=== PATIENT | male | born 1930 | race Caucasian/White ===

== ENCOUNTER → 2016-04-02 | Outpatient (CLI) | payer MEDICARE, BC, OTHER | LOC: RAD 14:09 | PROVIDERS: ATTEND Internal Medicine | DX: R51 Headache (principal) | CPT/HCPCS: 70450 ==

== ENCOUNTER 2017-06-14 13:35 | Emergency (ER) | payer MEDICARE, BC, OTHER ==
[2017-06-14 14:32] LABS: ABSOLUTE EOSINOPHILS # (AUTO) 1.3 10^3/uL (0.0-0.6); ABSOLUTE LYMPHOCYTES (AUTO) 2.7 10^3/uL (0.5-4.7); ABSOLUTE MONOCYTES (AUTO) 0.6 10^3/uL (0.1-1.4); ABSOLUTE NEUT (AUTO) 2.9 10^3/uL (1.7-8.2); BASOPHILS % (AUTO) 0.5 % (0-2); EOSINOPHILS % (AUTO) 17.3 % (0-6); HEMATOCRIT 43.6 % (37.9-51.0); HEMOGLOBIN 14.9 g/dL (13.5-17.0); LYMPHOCYTES % (AUTO) 35.6 % (13-45); MEAN CORPUSCULAR HGB CONC 34.1 g/dL (32.0-36.0); MEAN CORPUSCULAR VOLUME 91 fl (80-97); MONOCYTES % (AUTO) 7.7 % (3-13); PLATELET COUNT 256 10^3/uL (150-450); RED CELL DISTRIBUTION WIDTH 14.7 % (11.5-14.0); SEGMENTED NEUTROPHILS % (AUTO) 38.9 % (42-78); TOTAL CELLS COUNTED % (AUTO) 100 %; WHITE BLOOD COUNT 7.6 10^3/uL (4.0-10.5)
--- NOTE | 2017-06-14 14:36 | RADIOLOGY REPORT (SQ) ---
EXAM DESCRIPTION: CHEST SINGLE VIEW COMPLETED DATE/TIME: 06/14/2017 2:08 pm REASON FOR STUDY: sob COMPARISON: None. EXAM PARAMETERS: NUMBER OF VIEWS: One view. TECHNIQUE: Single frontal radiographic view of the chest acquired. RADIATION DOSE: NA LIMITATIONS: None. FINDINGS: LUNGS AND PLEURA: No opacities, masses or pneumothorax. No pleural effusion. MEDIASTINUM AND HILAR STRUCTURES: No masses. Contour normal. HEART AND VASCULAR STRUCTURES: Heart normal in size. Normal vasculature. BONES: No acute findings. HARDWARE: None in the chest. OTHER: No other significant finding. IMPRESSION: NO ACUTE RADIOGRAPHIC FINDING IN THE CHEST. TECHNICAL DOCUMENTATION: JOB ID: [id number] [employer]- All Rights Reserved Reading location - IP/workstation name: [email or web address]
[2017-06-14] MEDS ORDERED: NORMAL SALINE 1000 ML 1,000 ML IV ONE (14:41)
[2017-06-14] MEDS ORDERED: IPRATROPIUM/ALBUTEROL 0.5-2.5 MG/3 ML AMPUL NEB ONE (14:41)
--- NOTE | 2017-06-14 14:42 | ER Document Report ---
ED Respiratory Problem - General Chief Complaint: Shortness Of Breath Stated Complaint: SHORTNESS OF BREATH Time Seen by Provider: 06/14/17 14:40 Notes: The patient is a 87-year-old male who presents with 2 days of shortness of breath and wheezing. No history of COPD or smoking. Patient received 125 mg IV Solumedrol and a Duoneb by EMS prior to arrival with improvement of his wheezing. He denies chest pain, leg swelling, nausea, vomiting, fevers, hemoptysis, back pain or abdominal pain. TRAVEL OUTSIDE OF THE [place] IN LAST 30 DAYS: No - Related Data Allergies/Adverse Reactions: No Known Allergies Allergy (Unverified 06/14/17 13:51) Past Medical History - General Information source: Patient - Social History Smoking Status: Never Smoker Family History: Reviewed & Not Pertinent Patient has suicidal ideation: No Patient has homicidal ideation: No Endocrine Medical History: Reports: Hx Diabetes Mellitus Type 2 Renal/ Medical History: Denies: Hx Peritoneal Dialysis Review of Systems - Review of Systems Notes: REVIEW OF SYSTEMS: CONSTITUTIONAL: -fevers, -chills EENT: -eye pain, -difficulty swallowing, -nasal congestion CARDIOVASCULAR: -chest pain, -syncope. RESPIRATORY: +cough, +SOB GASTROINTESTINAL: -abdominal pain, -nausea, -vomiting, -diarrhea GENITOURINARY: -dysuria, -hematuria MUSCULOSKELETAL: -back pain, -neck pain SKIN: -rash or skin lesions. HEMATOLOGIC: -easy bruising or bleeding. LYMPHATIC: -swollen, enlarged glands. NEUROLOGICAL: -altered mental status or loss of consciousness, -headache, - neurologic symptoms PSYCHIATRIC: -anxiety, -depression. ALL OTHER SYSTEMS REVIEWED AND NEGATIVE. Physical Exam - Vital signs Vitals: Temp Resp BP Pulse Ox 97.5 F 24 H 145/93 H 95 06/14/17 14:15 06/14/17 14:15 06/14/17 14:15 06/14/17 14:15 - Notes Notes: PHYSICAL EXAMINATION: GENERAL: Well-appearing, well-nourished and in no acute distress. HEAD: Atraumatic, normocephalic. EYES: Pupils equal round and reactive to light, extraocular movements intact, sclera anicteric, conjunctiva are normal. ENT: nares patent, oropharynx clear without exudates. Moist mucous membranes. NECK: Normal range of motion, supple without lymphadenopathy LUNGS: No respiratory distress. Mild and expiratory wheezes. HEART: Regular rhythm without murmurs, mild tachycardia. ABDOMEN: Soft, nontender, normoactive bowel sounds. No guarding, no rebound. No masses appreciated. EXTREMITIES: Normal range of motion, no pitting or edema. No cyanosis. NEUROLOGICAL: Cranial nerves grossly intact. Normal sensory and motor exams. PSYCH: Normal mood, normal affect. SKIN: Warm, Dry, normal turgor, no rashes or lesions noted. Course - Re-evaluation Re-evalutation: Patient with wheezing and cough that is improved with Solu-Medrol and DuoNebs. Chest x-ray does not show any infiltrates and patient does not have a fever or leukocytosis. CTA performed due to the mild tachycardia and shortness of breath without a history of COPD. D-dimer is positive, but CTA does not show any evidence of a PE. Rest of blood work is unremarkable. Will send home patient with 4 more days of steroids, albuterol and follow-up with the primary care doctor. Given very strict return precautions and she understands. - Vital Signs Vital signs: Temp Pulse Resp BP Pulse Ox 97.5 F 18 153/93 H 96 06/14/17 14:15 06/14/17 16:01 06/14/17 16:01 06/14/17 16:01 - Laboratory Result Diagrams: 06/14/17 14:17 06/14/17 14:17 Laboratory results interpreted by me: 06/14/17 06/14/17 06/14/17 14:17 14:17 14:17 RDW 14.7 H Seg Neutrophils % 38.9 L Eosinophils % 17.3 H Absolute Eosinophils 1.3 H D-Dimer 2.91 H Glucose 189 H AST 12 L Creatine Kinase 33 L - Diagnostic Test Radiology reviewed: Image reviewed, Reports reviewed Radiology results interpreted by me: CXR: NAD CTA Chest: No PE. - EKG Interpretation by Me EKG shows normal: Sinus rhythm, [place], Intervals, QRS Complexes, ST-T Waves Rate: Tachycardia When compared to previous EKG there are: Previous EKG unavailable Discharge - Discharge Clinical Impression: Bronchitis Condition: Stable Disposition: HOME, SELF-CARE Additional Instructions: BRONCHITIS WITH BRONCHOSPASM (WHEEZING): You have bronchitis with bronchospasm (wheezing). Sometimes people develop wheezing with a chest cold. This occurs either because of an underlying tendency toward asthma or because the virus itself irritates the bronchial tubes. This irritation causes cough, shortness of breath, and wheezing. Emergency treatment of bronchospasm may include adrenaline shots or bronchodilator aerosol. You may feel lightheaded and have a rapid pulse for an hour or two. Rest and get plenty of fluids. At home, we'll treat you with a bronchodilator inhaler. Corticosteroids may be required for some patients. Until you recover, avoid chemical fumes, dusts, pollens, and exercising in very cold or dry air. If you smoke, stop now! Most cases of bronchitis get better without antibiotics. We prescribe antibiotics when we believe bacteria are damaging your airways, or if there's high risk the bronchitis will worsen into pneumonia. Increase your fluid intake. A cool mist humidifier may make your lungs more comfortable. An expectorant (cough medicine that loosens phlegm) can help. Repeated episodes of bronchitis and bronchospasm may result in lung damage -- for example, chronic bronchitis, recurrent pneumonias, or emphysema. If you develop a fever, increased wheezing, chest pain, or severe shortness of breath, you should contact the doctor immediately. INHALED BRONCHODILATORS: You have received a treatment of and/or prescription for an inhaled bronchodilator -- a medication which stimulates the airways in the lung to dilate. This improves the flow of air in asthma, bronchitis, and emphysema. These medicines have some similarity to adrenaline, and can cause similar side effects: shakiness, racing heart, and a sense of nervousness. These side effects decrease with time. Contact your doctor if these side effects are severe. Do not over-use the medicine. Too-frequent use of the inhaler may make it ineffective. Call your doctor if the inhaler is not controlling your symptoms at the prescribed doses. STEROID MEDICATION: You have been given an injection of or oral medicine of the cortisone/ steroid class. This medication is used to control inflammation or allergy. Ezequiel t is usually only given for a short period of time, until the acute process subsides. There are usually no side effects from short-term use of cortisone-like medications. Some persons feel an increased sense of well-being and are not sleepy at bedtime. Long-term use of cortisone medications is best avoided, unless required for a severe condition. If your condition does not remit, or relapses after the course of corticosteroid medication, you should consult your physician. USE OF ACETAMINOPHEN (Tylenol): Acetaminophen may be taken for pain relief or fever control. It's much safer than aspirin, offering a wider range of "safe" dosages. It is safe during . Some brand names are Tylenol, Panadol, Datril, Anacin 3, Tempra, and Liquiprin. Acetaminophen can be repeated every four hours. The following are maximum recommended dosages: >89 pounds or adults 650 mg to 900 mg Acetaminophen can be repeated every four hours. Maximum dose not to exceed 4000 mg a day. SMOKING: If you smoke, you should stop smoking. The tar and chemicals in cigarette smoke are harmful. Smoking has been shown to cause: emphysema chronic bronchitis lung cancer mouth and throat cancer stomach and pancreas cancer premature aging defects In addition, smoking increases ear and lung infections in children of smokers. FOLLOW-UP CARE: If you have been referred to a physician for follow-up care, call the physician s office for an appointment as you were instructed or within the next two days. If you experience worsening or a significant change in your symptoms, notify the physician immediately or return to the Emergency Department at any time for re-evaluation. Prescriptions: Albuterol Sulfate [Proair HFA Inhalation Aerosol 8.5 gm MDI] 2 puff IH Q4H PRN # 1 mdi PRN Reason: Prednisone [Deltasone 20 mg Tablet] 3 tab PO DAILY 4 Days tablet Forms: Elevated Blood Pressure Referrals: WESLEY DURBIN MD [ACTIVE STAFF] - Follow up as needed
[2017-06-14 14:51] LABS: ALANINE AMINOTRANSFERASE 22 U/L (21-72); ALBUMIN 3.9 g/dL (3.5-5.0); ALKALINE PHOSPHATASE 98 U/L (38-126); ANION GAP 13 (5-19); ASPARTATE AMINO TRANSFERASE 12 U/L (17-59); BILIRUBIN,DIRECT 0.3 mg/dL (0.0-0.4); BILIRUBIN,TOTAL 0.5 mg/dL (0.2-1.3); BLOOD UREA NITROGEN 20 mg/dL (7-20); CALCIUM 9.5 mg/dL (8.4-10.2); CARBON DIOXIDE 27 mmol/L (22-30); CHLORIDE 101 mmol/L (98-107); CREATINE KINASE 33 U/L (55-170); GLUCOSE 189 mg/dL (75-110); POTASSIUM 4.4 mmol/L (3.6-5.0); SODIUM 140.9 mmol/L (137-145); TOTAL PROTEIN 7.4 g/dL (6.3-8.2)
[2017-06-14 15:02] LABS: CREATINE KINASE MB 0.72 ng/mL (<4.55); TROPONIN I 0.012 ng/mL
--- NOTE | 2017-06-14 17:10 | RADIOLOGY REPORT (SQ) ---
EXAM DESCRIPTION: CTA CHEST COMPLETED DATE/TIME: 06/14/2017 4:56 pm REASON FOR STUDY: tachycardia, SOB, elevated d-dimer COMPARISON: None. TECHNIQUE: CT scan of the chest performed using helical scanning technique with dynamic intravenous contrast injection. Images reviewed with lung, soft tissue and bone windows. Reconstructed coronal and sagittal MPR images reviewed. Additional 3 dimensional post-processing performed to develop Maximal Intensity Projection images (TN P). All images stored on PACS. All CT scanners at this facility use dose modulation, iterative reconstruction, and/or weight based d osing when appropriate to reduce radiation dose to as low as reasonably achievable (ALARA). [facility]: Dose Right [facility]: CareDose [facility]: Dose Right [facility]: Teradose 4D [facility]: CGTrader CONTRAST TYPE AND DOSE: contrast/concentration: Isovue 370.00 mg/ml; Total Contrast Delivered: 68.0 ml; Total Saline Delivered: 81.0 ml Contrast bolus optimized for the pulmonary arteries. Not diagnostic for the aorta. RENAL FUNCTION: BUN 20 creatinine 0.8. RADIATION DOSE: CT Rad equipment meets quality standard of care and radiation dose reduction techniq ues were employed. CTDIvol: 15.7 - 39.7 mGy. DLP: 607 mGy-cm. . LIMITATIONS: None. FINDINGS: LUNGS AND PLEURA: Small left pleural effusion with mild subsegmental atelectasis in the le ft lower lobe. AORTA AND GREAT VESSELS: No aneurysm. Contrast bolus not optimized for the aorta. HEART: No pericardial effusion. Moderate to marked coronary artery calcifications. PULMONARY ARTERIES: No emboli visualized in the main pulmonary arteries or the segmental branches. HILAR AND MEDIASTINAL STRUCTURES: No identified masses or abnormal nodes. HARDWARE: None in the chest. UPPER ABDOMEN: No significant findings. Limited exam. THYROID AND OTHER SOFT TISSUES: No masses. No adenopathy. BONES: No acute or significant finding. 3D MIPS: Confirm above findings. OTHER: No other significant finding. IMPRESSION: 1. There is no evidence of pulmonary emboli. 2. There is a small left pleural effusion and mild subsegmental atelectasis in the left lower lobe. COMMENT: Quality ID # [id number]: Final reports with documentation of one or more dose reduction techniques (e.g., Automated exposure control, adjustment of the mA and/or kV according to patient size, use of iterative reconstruction technique) TECHNICAL DOCUMENTATION: JOB ID: [id number] [employer]- All Rights Reserved Reading location - IP/workstation name: [email or web address]
[2017-06-14 17:34] VITALS: BP 133/81
--- NOTE | 2017-06-14 19:42 | EKG REPORT ---
SEVERITY:- ABNORMAL ECG - SINUS TACHYCARDIA ATRIAL PREMATURE COMPLEX LEFT ANTERIOR FASCICULAR BLOCK PROBABLE ANTEROSEPTAL INFARCT, OLD : Confirmed by: Nicho Hernandez MD 14-Jun-2017 19:42:07
== END 2017-06-14 17:41 | disposition home or self-care (01) ==
LOC: ER 13:35
DX: J40 Bronchitis, not specified as acute or chronic (principal); R06.02 Shortness of breath; R06.2 Wheezing; E11.9 Type 2 diabetes mellitus without complications; R05 Cough; R00.0 Tachycardia, unspecified; R79.1 Abnormal coagulation profile
CPT/HCPCS: 93005; 94640; 99285; 96360; 36415; 82553; 82550; 85025; 80053; 84484; 85379; 83880; 71045; 71275; 93010; J7030; A9270; J7620

== ENCOUNTER 2017-06-28 16:27 | Observation (INO) | payer MEDICARE, BC, OTHER ==
[2017-06-28 17:47] LABS: ABSOLUTE EOSINOPHILS # (AUTO) 0.7 10^3/uL (0.0-0.6); ABSOLUTE LYMPHOCYTES (AUTO) 1.4 10^3/uL (0.5-4.7); ABSOLUTE MONOCYTES (AUTO) 0.7 10^3/uL (0.1-1.4); ABSOLUTE NEUT (AUTO) 5.2 10^3/uL (1.7-8.2); BASOPHILS % (AUTO) 0.3 % (0-2); EOSINOPHILS % (AUTO) 8.5 % (0-6); HEMATOCRIT 39.6 % (37.9-51.0); HEMOGLOBIN 13.4 g/dL (13.5-17.0); LYMPHOCYTES % (AUTO) 17.3 % (13-45); MEAN CORPUSCULAR HEMOGLOBIN 30.5 pg (27.0-33.4); MEAN CORPUSCULAR HGB CONC 33.7 g/dL (32.0-36.0); MEAN CORPUSCULAR VOLUME 91 fl (80-97); MONOCYTES % (AUTO) 9.1 % (3-13); PLATELET COUNT 212 10^3/uL (150-450); RED BLOOD COUNT 4.38 10^6/uL (4.35-5.55); RED CELL DISTRIBUTION WIDTH 14.5 % (11.5-14.0); SEGMENTED NEUTROPHILS % (AUTO) 64.8 % (42-78); TOTAL CELLS COUNTED % (AUTO) 100 %
[2017-06-28 17:54] LABS: ALANINE AMINOTRANSFERASE 28 U/L (21-72); ALBUMIN 3.7 g/dL (3.5-5.0); ALKALINE PHOSPHATASE 87 U/L (38-126); ANION GAP 9 (5-19); ASPARTATE AMINO TRANSFERASE 13 U/L (17-59); BILIRUBIN,DIRECT 0.3 mg/dL (0.0-0.4); BILIRUBIN,TOTAL 0.3 mg/dL (0.2-1.3); BLOOD UREA NITROGEN 20 mg/dL (7-20); CALCIUM 9.5 mg/dL (8.4-10.2); CARBON DIOXIDE 30 mmol/L (22-30); CHLORIDE 101 mmol/L (98-107); CREATINE KINASE 23 U/L (55-170); GLUCOSE 256 mg/dL (75-110); POTASSIUM 4.6 mmol/L (3.6-5.0); SODIUM 139.5 mmol/L (137-145); TOTAL PROTEIN 6.8 g/dL (6.3-8.2)
[2017-06-28 18:05] LABS: CREATINE KINASE MB 0.57 ng/mL (<4.55); TROPONIN I 0.012 ng/mL
[2017-06-28] MEDS ORDERED: NORMAL SALINE 1000 ML 1,000 ML IV ONE (18:17)
--- NOTE | 2017-06-28 18:39 | ER Document Report ---
ED General - General Chief Complaint: Weakness Stated Complaint: FAILURE TO THRIVE Time Seen by Provider: 06/28/17 17:45 Mode of Arrival: Ambulatory Information source: Patient, Relative Notes: 87-year-old male with a history of dementia, diabetes presents via EMS after his primary care physician's office advised him to come to the emergency department. Per the who provides the majority of the history patient was seen by his PCP Dr. Burr last week. She was called today and told that the patient had an elevated hemoglobin A1c and glucose and evidence of dehydration. states that the patient has been declining steadily with worsening weakness, weight loss and refusal to eat. Patient has no physical complaints. states that he is alert and oriented 1 at baseline. He is non-ambulatory which also has been ongoing. She denies any falls, recent illnesses. cares for the patient independently and admits to struggling recently with his decline. TRAVEL OUTSIDE OF THE [place] IN LAST 30 DAYS: No - HPI Onset: Other Onset/Duration: Gradual Quality of pain: No pain Associated symptoms: None Exacerbated by: Denies Relieved by: Denies Similar symptoms previously: Yes Recently seen / treated by doctor: Yes - Related Data Allergies/Adverse Reactions: No Known Allergies Allergy (Unverified 06/14/17 13:51) Past Medical History - General Information source: Relative Cannot obtain history due to: Dementia - Social History Smoking Status: Never Smoker Chew tobacco use (# tins/day): No Frequency of alcohol use: None Drug Abuse: None Lives with: Spouse/Significant other Family History: Reviewed & Not Pertinent Patient has suicidal ideation: No Patient has homicidal ideation: No Endocrine Medical History: Reports: Hx Diabetes Mellitus Type 2 Renal/ Medical History: Denies: Hx Peritoneal Dialysis Review of Systems - Review of Systems -: Yes ROS unobtainable due to patient's medical condition Physical Exam - Vital signs Vitals: Temp Pulse Resp BP Pulse Ox 97.6 F 93 20 124/80 96 06/28/17 16:35 06/28/17 16:35 06/28/17 16:35 06/28/17 16:35 06/28/17 16:35 Interpretation: Normal. No: Tachycardic, Hypoxic, Febrile - Notes Notes: PHYSICAL EXAMINATION: GENERAL: Cachectic, unkempt. HEAD: Atraumatic, normocephalic. EYES: Pupils equal round and reactive to light, extraocular movements intact, sclera anicteric, conjunctiva are normal. ENT: Nares patent, oropharynx clear without exudates. Dry mucous membranes. NECK: Normal range of motion, supple without lymphadenopathy LUNGS: Breath sounds clear to auscultation bilaterally and equal. No wheezes rales or rhonchi. HEART: Regular rate and rhythm without murmurs ABDOMEN: Soft, nontender, nondistended abdomen. No guarding, no rebound. No masses appreciated. Musculoskeletal: Normal range of motion, no pitting or edema. No cyanosis. NEUROLOGICAL: Cranial nerves grossly intact. Normal speech, Normal sensory, motor exams PSYCH: Normal mood, normal affect. SKIN: Warm, Dry, normal turgor, no rashes or lesions noted. Course - Re-evaluation Re-evalutation: 06/28/17 23:09 Laboratory 06/28/17 06/28/17 06/28/17 16:30 16:30 16:30 WBC 8.0 RBC 4.38 Hgb 13.4 L Hct 39.6 MCV 91 MCH 30.5 MCHC 33.7 RDW 14.5 H Plt Count 212 Seg Neutrophils % 64.8 Lymphocytes % 17.3 Monocytes % 9.1 Eosinophils % 8.5 H Basophils % 0.3 Absolute Neutrophils 5.2 Absolute Lymphocytes 1.4 Absolute Monocytes 0.7 Absolute Eosinophils 0.7 H Absolute Basophils 0.0 Sodium 139.5 Potassium 4.6 Chloride 101 Carbon Dioxide 30 Anion Gap 9 BUN 20 Creatinine 0.87 Est GFR ( Amer) > 60 Est GFR (Non-Af Amer) > 60 Glucose 256 H POC Glucose Hemoglobin A1c % Calcium 9.5 Magnesium Total Bilirubin 0.3 Direct Bilirubin 0.3 Neonat Total Bilirubin Not Reportable Neonat Direct Bilirubin Not Reportable Neonat Indirect Bili Not Reportable AST 13 L ALT 28 Alkaline Phosphatase 87 Creatine Kinase 23 L CK-MB (CK-2) 0.57 Troponin I 0.012 Total Protein 6.8 Albumin 3.7 Urine Color Urine Appearance Urine pH Ur Specific [place] Urine Protein Urine Glucose (UA) Urine Ketones Urine Blood Urine Nitrite Urine Bilirubin Urine Urobilinogen Ur Leukocyte Esterase Urine WBC (Auto) Urine RBC (Auto) Squamous Epi Cells Auto Urine Mucus (Auto) Urine Ascorbic Acid 05/07/18 05/07/18 05/07/18 16:30 16:30 21:05 WBC RBC Hgb Hct MCV MCH MCHC RDW Plt Count Seg Neutrophils % Lymphocytes % Monocytes % Eosinophils % Basophils % Absolute Neutrophils Absolute Lymphocytes Absolute Monocytes Absolute Eosinophils Absolute Basophils Sodium Potassium Chloride Carbon Dioxide Anion Gap BUN Creatinine Est GFR ( Amer) Est GFR (Non-Af Amer) Glucose POC Glucose Hemoglobin A1c % 8.5 H Calcium Magnesium 1.7 Total Bilirubin Direct Bilirubin Neonat Total Bilirubin Neonat Direct Bilirubin Neonat Indirect Bili AST ALT Alkaline Phosphatase Creatine Kinase CK-MB (CK-2) Troponin I Total Protein Albumin Urine Color YELLOW Urine Appearance CLEAR Urine pH 5.0 Ur Specific [place] 1.023 Urine Protein NEGATIVE Urine Glucose (UA) 150 H Urine Ketones NEGATIVE Urine Blood NEGATIVE Urine Nitrite NEGATIVE Urine Bilirubin NEGATIVE Urine Urobilinogen 2.0 H Ur Leukocyte Esterase NEGATIVE Urine WBC (Auto) 4 Urine RBC (Auto) 0 Squamous Epi Cells Auto <1 Urine Mucus (Auto) RARE Urine Ascorbic Acid NEGATIVE 06/28/17 06/28/17 06/28/17 21:53 22:25 22:25 WBC RBC Hgb Hct MCV MCH MCHC RDW Plt Count Seg Neutrophils % Lymphocytes % Monocytes % Eosinophils % Basophils % Absolute Neutrophils Absolute Lymphocytes Absolute Monocytes Absolute Eosinophils Absolute Basophils Sodium Potassium Chloride Carbon Dioxide Anion Gap BUN Creatinine Est GFR ( Amer) Est GFR (Non-Af Amer) Glucose POC Glucose 204 H Hemoglobin A1c % Calcium Magnesium Total Bilirubin Direct Bilirubin Neonat Total Bilirubin Neonat Direct Bilirubin Neonat Indirect Bili AST ALT Alkaline Phosphatase Creatine Kinase < 20 L CK-MB (CK-2) 0.77 Troponin I 0.013 Total Protein Albumin Urine Color Urine Appearance Urine pH Ur Specific [place] Urine Protein Urine Glucose (UA) Urine Ketones Urine Blood Urine Nitrite Urine Bilirubin Urine Urobilinogen Ur Leukocyte Esterase Urine WBC (Auto) Urine RBC (Auto) Squamous Epi Cells Auto Urine Mucus (Auto) Urine Ascorbic Acid Chest X-Ray 06/28/17 18:16 IMPRESSION: Ectasia of the ascending aorta. No acute pulmonary disease. 87-year-old male with a history of dementia presents from home after his primary care physician's office advised him to be seen in the emergency department. Patient's provides the majority of the history and states that the patient has been slowly declining, refusing to eat and has experienced and a significant weight loss. Patient was seen by his primary care physician this week and blood work was obtained which showed the patient have a elevated hemoglobin A1c. Upon arrival patient is in no acute distress. He is cachectic in appearance, uncapped and appears mildly dehydrated. CBC shows no leukocytosis, mild anemia. CMP is without electrolyte abnormalities does show an elevated glucose without evidence of DKA. Urinalysis is without infection, cardiac enzymes are within normal limits. I spoke to Dr. Burr the patient' s primary care physician who agrees to admit the patient. Per the patient is a full code. - Vital Signs Vital signs: Temp Pulse Resp BP Pulse Ox 98.2 F 75 18 122/67 96 06/28/17 21:44 06/28/17 21:44 06/28/17 21:44 06/28/17 21:44 06/28/17 21:44 - Laboratory Result Diagrams: 06/28/17 16:30 06/28/17 16:30 Laboratory results interpreted by me: 06/28/17 06/28/17 06/28/17 16:30 16:30 16:30 Hgb 13.4 L RDW 14.5 H Eosinophils % 8.5 H Absolute Eosinophils 0.7 H Glucose 256 H Hemoglobin A1c % 8.5 H AST 13 L Creatine Kinase 23 L - Diagnostic Test Radiology reviewed: Image reviewed, Reports reviewed Discharge - Discharge Clinical Impression: Hyperglycemia Failure to thrive Qualifiers: Failure to thrive age range: in adult Qualified Code(s): R62.7 - Adult failure to thrive Dementia Qualifiers: Dementia type: unspecified type Dementia behavioral disturbance: without behavioral disturbance Qualified Code(s): F03.90 - Unspecified dementia without behavioral disturbance Condition: Fair Disposition: ADMITTED OBSERVATION Admitting Provider: Leno Unit Admitted: Medical Floor
--- NOTE | 2017-06-28 18:53 | RADIOLOGY REPORT (SQ) ---
EXAM DESCRIPTION: CHEST 2 VIEWS COMPLETED DATE/TIME: 06/28/2017 6:33 pm REASON FOR STUDY: weight loss h/o lung ca COMPARISON: None. EXAM PARAMETERS: NUMBER OF VIEWS: two views TECHNIQUE: Digital Frontal and Lateral radiographic views of the chest acquired. RADIATION DOSE: NA LIMITATIONS: none FINDINGS: LUNGS AND PLEURA: No opacities, masses or pneumothorax. No pleural effusion. MEDIASTINUM AND HILAR STRUCTURES: No masses or contour abnormalities. HEART AND VASCULAR STRUCTURES: Heart size is normal. There is ectasia of the ascending aorta. BONES: No acute findings. HARDWARE: None in the chest. OTHER: No other significant finding. IMPRESSION: Ectasia of the ascending aorta. No acute pulmonary disease. TECHNICAL DOCUMENTATION: JOB ID: [id number] [employer]- All Rights Reserved Reading location - IP/workstation name: [email or web address]
[2017-06-28 21:13] LABS: APPEARANCE,URINE CLEAR; BILIRUBIN,URINE NEGATIVE (NEGATIVE); COLOR,URINE YELLOW; GLUCOSE, URINE 150 mg/dL (NEGATIVE); KETONES,URINE NEGATIVE (NEGATIVE); LEUKOCYTE ESTERASE,URINE NEGATIVE (NEGATIVE); NITRITE,URINE NEGATIVE (NEGATIVE); PROTEIN,URINE NEGATIVE (NEGATIVE); URINE SPECIFIC GRAVITY 1.023
[2017-06-28] MEDS ORDERED: NORMAL SALINE 1000 ML 1,000 ML IV PRN (22:04)
[2017-06-28 23:04] LABS: CREATINE KINASE MB 0.77 ng/mL (<4.55); TROPONIN I 0.013 ng/mL
[2017-06-29 05:06] LABS: ABSOLUTE EOSINOPHILS # (AUTO) 0.6 10^3/uL (0.0-0.6); ABSOLUTE MONOCYTES (AUTO) 0.7 10^3/uL (0.1-1.4); ABSOLUTE NEUT (AUTO) 4.9 10^3/uL (1.7-8.2); BASOPHILS % (AUTO) 0.4 % (0-2); EOSINOPHILS % (AUTO) 7.9 % (0-6); HEMATOCRIT 36.5 % (37.9-51.0); HEMOGLOBIN 12.4 g/dL (13.5-17.0); LYMPHOCYTES % (AUTO) 14.3 % (13-45); MEAN CORPUSCULAR HEMOGLOBIN 30.9 pg (27.0-33.4); MEAN CORPUSCULAR HGB CONC 33.8 g/dL (32.0-36.0); MEAN CORPUSCULAR VOLUME 91 fl (80-97); MONOCYTES % (AUTO) 9.9 % (3-13); PLATELET COUNT 184 10^3/uL (150-450); SEGMENTED NEUTROPHILS % (AUTO) 67.5 % (42-78); TOTAL CELLS COUNTED % (AUTO) 100 %; WHITE BLOOD COUNT 7.2 10^3/uL (4.0-10.5)
[2017-06-29 05:29] LABS: ANION GAP 11 (5-19); BLOOD UREA NITROGEN 17 mg/dL (7-20); CARBON DIOXIDE 26 mmol/L (22-30); CHLORIDE 105 mmol/L (98-107); CREATINE KINASE 22 U/L (55-170); GLUCOSE 187 mg/dL (75-110); POTASSIUM 4.8 mmol/L (3.6-5.0); SODIUM 142.3 mmol/L (137-145)
[2017-06-29 05:32] LABS: CREATINE KINASE MB 0.75 ng/mL (<4.55)
[2017-06-29 05:35] LABS: TROPONIN I < 0.012 ng/mL
[2017-06-29] MEDS ORDERED: GLUCAGON,HUMAN RECOMB 1 MG INJ IM PRN (08:02)
[2017-06-29] MEDS ORDERED: INSULIN LISPRO 100 UNIT/ML 3 ML VIAL SUBCUT PRN (08:02)
[2017-06-29] MEDS ORDERED: DEXTROSE 40% GEL 15 GM TUBE PO PRN ×2 (08:02)
[2017-06-29] MEDS ORDERED: DEXTROSE 50%-WATER 25 GM/50 ML DISP.SYRIN IV PRN ×2 (08:02)
[2017-06-29] MEDS: ENOXAPARIN SODIUM INJ 40 MG/0.4 ML DISP.SYRIN SUBCUT SCH (09:23)
--- NOTE | 2017-06-29 09:39 | Physician Advisory Note ---
Physician Advisor ProgressNote .: Pursuant to the plan for [facility], I have reviewed the medical record for this patient. Physician Advisor Statement: Please consider documenting, if you agree: 1. "suspected protein-calorie malnutrition [state mild, mod, or severe] with BMI __, ____[wt loss, appetite loss, ]" [if possible, give specifics on intake, wt loss, loss of SQ fat & muscle mass, diminished hand drafter patent strength, & clinical importance such as (A) nutritional assessment ordered, (B) modified diet or supplements ordered, (C) additional labs ordered, (D) prolonged wound healing time, (E) delayed infxn clearance] Status: Pt appropriately brought in as Obs status. Medicare pt - if has clinical reason(s) to need 2nd MN in hospital care/ monitoring, please document them, & then may consider change to Inpatient status. CK
[2017-06-29 11:10] LABS: CREATINE KINASE MB 0.77 ng/mL (<4.55); TROPONIN I 0.013 ng/mL
--- NOTE | 2017-06-29 20:36 | PDOC H&P ---
History of Present Illness Admission Date/PCP: 06/28/17 20:54 WESLEY DURBIN MD History of Present Illness: FLOWER HILLIARD is a 87 year old male,He has profound dementia he recently came to the office with his to establish with our practice, I could not get any history from this patient in the office, he looks very unkempt,he smells of urine all over his body suggesting urinary incontinence, I did routine blood work in the office result came back showing severe hyperglycemia, there was no mention of history of diabetes when he came to the office for the first time to establish with us because of the elevated serum glucose and the fact that patient looks unkempt he was advised by my office to go to the emergency room for evaluation especially more so for IV hydration because I thought it was a new onset diabetes mellitus. When he arrived emergency room he was evaluated the blood work revealed [id number] of 8.5 with elevated serum glucose the emergency room physician felt that patient needed to be admitted for observation she thought the spouse could not take care of this patient, patient spouse is also of advanced age..As indicated history taking is a challenge from this patient I could not obtain any reasonable history from this patient.Patient spouse stated that he was diagnosed with diabetes years ago but the last time he was in the half-way at [place] for rehabilitation he was advised that he has no more diabetes mellitus, so apparently he has not been taking any medication for the control of diabetes but clearly he has diabetes, the hemoglobin a1c is more than 8 and blood sugar is over 200. Past Medical History Endocrine Medical History: Reports: Diabetes Mellitus Type 2 Psychiatric Medical History: Reports: Dementia Social History Lives with: Spouse/Significant other Smoking Status: Never Smoker Frequency of Alcohol Use: None Hx Recreational Drug Use: No Hx Prescription Drug Abuse: No Family History Family History: Reviewed & Not Pertinent Parental Family History Reviewed: Yes Children Family History Reviewed: Yes Sibling(s) Family History Reviewed.: Yes Medication/Allergy Home Medications: Albuterol Sulfate [Proair HFA] 2 puff IH Q4HP PRN 06/29/17 Lansoprazole [Prevacid] 30 mg PO DAILY 06/29/17 Memantine HCl [Namenda 10 mg Tablet] 10 mg PO BID 06/29/17 Sertraline HCl [Zoloft] 100 mg PO DAILY 06/29/17 Tamsulosin HCl [Flomax 0.4 mg Cap.sr] 0.8 mg PO DAILY 06/29/17 Allergies/Adverse Reactions: No Known Allergies Allergy (Unverified 06/14/17 13:51) Review of Systems ROS unobtainable: Other - Dementia Physical Exam Vital Signs: Temp Pulse Resp BP Pulse Ox 98.0 F 67 18 130/66 H 98 06/29/17 15:16 06/29/17 15:16 06/29/17 15:16 06/29/17 15:16 06/29/17 15:16 Intake & Output 06/28/17 06/29/17 06/30/17 06:59 06:59 06:59 Intake Total 600 1920 Balance 600 1920 Weight 61 kg General appearance: PRESENT: other - Patient looks unkempt Head exam: PRESENT: atraumatic, normocephalic Eye exam: PRESENT: PERRLA Mouth exam: PRESENT: dry mucosa Neck exam: PRESENT: full ROM Respiratory exam: PRESENT: clear to auscultation yeimi Cardiovascular exam: PRESENT: RRR, +S1, +S2 Vascular exam: PRESENT: normal capillary refill GI/Abdominal exam: PRESENT: normal bowel sounds, soft Rectal exam: PRESENT: deferred Neurological exam: PRESENT: alert, CN II-XII grossly intact Psychiatric exam: PRESENT: appropriate affect, normal mood Skin exam: PRESENT: dry, intact, warm Results Laboratory Results: 06/29/17 04:25 06/29/17 04:25 06/28/17 06/29/17 06/29/17 21:05 04:25 04:25 WBC 7.2 RBC 4.00 L Hgb 12.4 L Hct 36.5 L MCV 91 MCH 30.9 MCHC 33.8 RDW 15.0 H Plt Count 184 Seg Neutrophils % 67.5 Lymphocytes % 14.3 Monocytes % 9.9 Eosinophils % 7.9 H Basophils % 0.4 Absolute Neutrophils 4.9 Absolute Lymphocytes 1.0 Absolute Monocytes 0.7 Absolute Eosinophils 0.6 Absolute Basophils 0.0 Sodium 142.3 Potassium 4.8 Chloride 105 Carbon Dioxide 26 Anion Gap 11 BUN 17 Creatinine 0.84 Est GFR ( Amer) > 60 Est GFR (Non-Af Amer) > 60 Glucose 187 H Calcium 9.0 Urine Color YELLOW Urine Appearance CLEAR Urine pH 5.0 Ur Specific [place] 1.023 Urine Protein NEGATIVE Urine Glucose (UA) 150 H Urine Ketones NEGATIVE Urine Blood NEGATIVE Urine Nitrite NEGATIVE Ur Leukocyte Esterase NEGATIVE Urine WBC (Auto) 4 Urine RBC (Auto) 0 06/28/17 06/28/17 06/29/17 22:25 22:25 04:25 Creatine Kinase < 20 L 22 L CK-MB (CK-2) 0.77 Troponin I 0.013 06/29/17 06/29/17 06/29/17 04:25 10:24 10:24 Creatine Kinase 22 L CK-MB (CK-2) 0.75 0.77 Troponin I < 0.012 0.013 Impressions: Chest X-Ray 06/28/17 18:16 IMPRESSION: Ectasia of the ascending aorta. No acute pulmonary disease. 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
--- NOTE | 2017-06-29 20:41 | PDOC PROGRESS REPORT ---
Subjective Progress Note for:: 06/29/17 Subjective:: Patient was seen by the bedside, he looks better today, I reviewed the notes from discharge planning regarding patient's home situation and the fact that APS is involved or the case was reported to APS for attention, patient was admitted for observation ,hopefully discharge home in the morning Reason For Visit: NEWLY DIAGNOSED DIABETES MELLITUS, DEMENTIA, Physical Exam Vital Signs: Temp Pulse Resp BP Pulse Ox 98.0 F 67 18 130/66 H 98 06/29/17 15:16 06/29/17 15:16 06/29/17 15:16 06/29/17 15:16 06/29/17 15:16 Intake & Output 06/28/17 06/29/17 06/30/17 06:59 06:59 06:59 Intake Total 600 1920 Balance 600 1920 Weight 61 kg General appearance: PRESENT: no acute distress Respiratory exam: PRESENT: clear to auscultation yeimi Cardiovascular exam: PRESENT: +S1, +S2 GI/Abdominal exam: PRESENT: soft Neurological exam: PRESENT: alert Results Laboratory Results: 06/29/17 04:25 06/29/17 04:25 06/28/17 06/29/17 06/29/17 21:05 04:25 04:25 WBC 7.2 RBC 4.00 L Hgb 12.4 L Hct 36.5 L MCV 91 MCH 30.9 MCHC 33.8 RDW 15.0 H Plt Count 184 Seg Neutrophils % 67.5 Lymphocytes % 14.3 Monocytes % 9.9 Eosinophils % 7.9 H Basophils % 0.4 Absolute Neutrophils 4.9 Absolute Lymphocytes 1.0 Absolute Monocytes 0.7 Absolute Eosinophils 0.6 Absolute Basophils 0.0 Sodium 142.3 Potassium 4.8 Chloride 105 Carbon Dioxide 26 Anion Gap 11 BUN 17 Creatinine 0.84 Est GFR ( Amer) > 60 Est GFR (Non-Af Amer) > 60 Glucose 187 H Calcium 9.0 Urine Color YELLOW Urine Appearance CLEAR Urine pH 5.0 Ur Specific [place] 1.023 Urine Protein NEGATIVE Urine Glucose (UA) 150 H Urine Ketones NEGATIVE Urine Blood NEGATIVE Urine Nitrite NEGATIVE Ur Leukocyte Esterase NEGATIVE Urine WBC (Auto) 4 Urine RBC (Auto) 0 06/28/17 06/28/17 06/29/17 22:25 22:25 04:25 Creatine Kinase < 20 L 22 L CK-MB (CK-2) 0.77 Troponin I 0.013 06/29/17 06/29/17 06/29/17 04:25 10:24 10:24 Creatine Kinase 22 L CK-MB (CK-2) 0.75 0.77 Troponin I < 0.012 0.013 Impressions: Chest X-Ray 06/28/17 18:16 IMPRESSION: Ectasia of the ascending aorta. No acute pulmonary disease. 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
[2017-06-29] MEDS ORDERED: SITAGLIPTIN PHOSPHATE 50 MG TABLET PO SCH (22:00)
[2017-06-30 05:47] LABS: ABSOLUTE EOSINOPHILS # (AUTO) 0.6 10^3/uL (0.0-0.6); ABSOLUTE LYMPHOCYTES (AUTO) 1.1 10^3/uL (0.5-4.7); ABSOLUTE MONOCYTES (AUTO) 0.6 10^3/uL (0.1-1.4); ABSOLUTE NEUT (AUTO) 4.3 10^3/uL (1.7-8.2); BASOPHILS % (AUTO) 0.5 % (0-2); EOSINOPHILS % (AUTO) 8.4 % (0-6); HEMATOCRIT 36.9 % (37.9-51.0); HEMOGLOBIN 12.5 g/dL (13.5-17.0); LYMPHOCYTES % (AUTO) 16.3 % (13-45); MEAN CORPUSCULAR HEMOGLOBIN 30.8 pg (27.0-33.4); MEAN CORPUSCULAR HGB CONC 33.9 g/dL (32.0-36.0); MEAN CORPUSCULAR VOLUME 91 fl (80-97); MONOCYTES % (AUTO) 9.6 % (3-13); PLATELET COUNT 186 10^3/uL (150-450); RED BLOOD COUNT 4.06 10^6/uL (4.35-5.55); RED CELL DISTRIBUTION WIDTH 14.7 % (11.5-14.0); SEGMENTED NEUTROPHILS % (AUTO) 65.2 % (42-78); TOTAL CELLS COUNTED % (AUTO) 100 %; WHITE BLOOD COUNT 6.6 10^3/uL (4.0-10.5)
[2017-06-30 05:56] LABS: ANION GAP 9 (5-19); BLOOD UREA NITROGEN 16 mg/dL (7-20); CALCIUM 8.8 mg/dL (8.4-10.2); CARBON DIOXIDE 26 mmol/L (22-30); CHLORIDE 104 mmol/L (98-107); GLUCOSE 140 mg/dL (75-110); POTASSIUM 4.3 mmol/L (3.6-5.0); SODIUM 138.7 mmol/L (137-145)
[2017-06-30] MEDS: ENOXAPARIN SODIUM INJ 40 MG/0.4 ML DISP.SYRIN SUBCUT SCH (09:46)
--- NOTE | 2017-06-30 14:37 | PDOC DISCHARGE SUMMARY ---
General - Admit/Disc Date/PCP Admission Date/Primary Care Provider: 06/28/17 20:54 WESLEY DURBIN MD Discharge Date: 06/30/17 - Discharge Diagnosis (1) Diabetes mellitus Is this a current diagnosis for this admission?: Yes (2) Dementia Is this a current diagnosis for this admission?: Yes - Additional Information Prescriptions: Sitagliptin Phosphate [Januvia 50 mg Tablet] 50 mg PO QHS #90 tablet Home Medications: Albuterol Sulfate [Proair HFA] 2 puff IH Q4HP PRN 06/29/17 Lansoprazole [Prevacid] 30 mg PO DAILY 06/29/17 Memantine HCl [Namenda 10 mg Tablet] 10 mg PO BID 06/29/17 Sertraline HCl [Zoloft] 100 mg PO DAILY 06/29/17 Tamsulosin HCl [Flomax 0.4 mg Cap.sr] 0.8 mg PO DAILY 06/29/17 Sitagliptin Phosphate [Januvia 50 mg Tablet] 50 mg PO QHS #90 tablet 06/30/17 History of Present Illness History of Present Illness: FLOWER HILLIARD is a 87 year old male,He has profound dementia he recently came to the office with his to establish with our practice, I could not get any history from this patient in the office, he looks very unkempt,he smells of urine all over his body suggesting urinary incontinence, I did routine blood work in the office result came back showing severe hyperglycemia, there was no mention of history of diabetes when he came to the office for the first time to establish with us because of the elevated serum glucose and the fact that patient looks unkempt he was advised by my office to go to the emergency room for evaluation especially more so for IV hydration because I thought it was a new onset diabetes mellitus. When he arrived emergency room he was evaluated the blood work revealed [id number] of 8.5 with elevated serum glucose the emergency room physician felt that patient needed to be admitted for observation she thought the spouse could not take care of this patient, patient spouse is also of advanced age..As indicated history taking is a challenge from this patient I could not obtain any reasonable history from this patient.Patient spouse stated that he was diagnosed with diabetes years ago but the last time he was in the alf at [place] for rehabilitation he was advised that he has no more diabetes mellitus, so apparently he has not been taking any medication for the control of diabetes but clearly he has diabetes, the hemoglobin a1c is more than 8 and blood sugar is over 200. Hospital Course Hospital Course: Patient was admitted for the management of hyperglycemia, dehydration, in the setting of dementia and poor medical regimen compliance. He was treated with IV fluid and also started on Januvia. Patient is severely demented, he lives with his ,is not able to take care of him. Unfortunately patient's residence is not a welcoming place for strangers, they have more than 20 cats and home health is not able to provide services for this patient in that condition, he probably needed to be in a long-term usp home but we cannot transfer him to alf because he is still admitted for observation based on Medicare criteria he asked to be inpatient to qualify for alf rehabilitation and probably long-term stay. Physical Exam Vital Signs: Temp Pulse Resp BP Pulse Ox 98.5 F 70 12 129/60 H 97 06/30/17 11:36 06/30/17 11:36 06/30/17 11:36 06/30/17 11:36 06/30/17 11:36 Intake & Output 06/29/17 06/30/17 07/01/17 06:59 06:59 06:59 Intake Total 600 3340 200 Balance 600 3340 200 Weight 61 kg 64.3 kg General appearance: PRESENT: no acute distress Eye exam: PRESENT: PERRLA Respiratory exam: PRESENT: clear to auscultation yeimi Cardiovascular exam: PRESENT: +S1, +S2 GI/Abdominal exam: PRESENT: soft Neurological exam: PRESENT: alert Results Laboratory Results: 06/30/17 05:07 06/30/17 05:07 06/30/17 06/30/17 05:07 05:07 WBC 6.6 RBC 4.06 L Hgb 12.5 L Hct 36.9 L MCV 91 MCH 30.8 MCHC 33.9 RDW 14.7 H Plt Count 186 Seg Neutrophils % 65.2 Lymphocytes % 16.3 Monocytes % 9.6 Eosinophils % 8.4 H Basophils % 0.5 Absolute Neutrophils 4.3 Absolute Lymphocytes 1.1 Absolute Monocytes 0.6 Absolute Eosinophils 0.6 Absolute Basophils 0.0 Sodium 138.7 Potassium 4.3 Chloride 104 Carbon Dioxide 26 Anion Gap 9 BUN 16 Creatinine 0.82 Est GFR ( Amer) > 60 Est GFR (Non-Af Amer) > 60 Glucose 140 H Calcium 8.8 06/28/17 06/28/17 06/29/17 22:25 22:25 04:25 Creatine Kinase < 20 L 22 L CK-MB (CK-2) 0.77 Troponin I 0.013 06/29/17 06/29/17 06/29/17 04:25 10:24 10:24 Creatine Kinase 22 L CK-MB (CK-2) 0.75 0.77 Troponin I < 0.012 0.013 Impressions: Chest X-Ray 06/28/17 18:16 IMPRESSION: Ectasia of the ascending aorta. No acute pulmonary disease. Qualifiers - * PATIENT BEING DISCHARGED WITH ANY OF THE FOLLOWING DIAGNOSIS: No
[2017-06-30 15:43] VITALS: BP 124/66
== END 2017-06-30 17:15 | disposition home or self-care (01) ==
LOC: ER 16:27 → EH 20:54 → 4N 23:00
PROVIDERS: ADMIT Internal Medicine; ATTEND Internal Medicine
DX: E11.65 Type 2 diabetes mellitus with hyperglycemia (principal); F03.90 Unspecified dementia, unspecified severity, without behavioral disturbance, psychotic disturbance, mood disturbance, and anxiety; E86.0 Dehydration; R53.1 Weakness; F50.89 Other specified eating disorder; Z74.09 Other reduced mobility; R62.7 Adult failure to thrive; D64.9 Anemia, unspecified; Z79.899 Other long term (current) drug therapy; Z68.24 Body mass index [BMI] 24.0-24.9, adult
CPT/HCPCS: 99285; 96360; 36415 ×3; 82553 ×2; 82962 ×3; 82550 ×2; 83735; 85025 ×3; 80048 ×2; 80053; 81001; 84484 ×2; 83036; 71046; J1650 ×2; A9270; J7030 ×2